=== PATIENT | female | born 1950 | race Caucasian/White ===

== ENCOUNTER 2017-12-20 10:04 | Emergency (ER) | payer OTHER ==
[~2017-12-20] VITALS: Ht 149.9 cm; Wt 75.7 kg
[2017-12-20 10:10] VITALS: Ht 149.9 cm; Wt 75.7 kg
[2017-12-20 12:24] VITALS: BP 126/75
== END 2017-12-20 12:39 | disposition home or self-care (01) ==
LOC: ED 10:04
DX: M25.511 Pain in right shoulder (principal); I10 Essential (primary) hypertension; M19.90 Unspecified osteoarthritis, unspecified site